=== PATIENT | male | born 1970 | race Caucasian/White ===

== ENCOUNTER → 2020-09-03 | Outpatient (CLI) | payer OTHER ==
[2020-06-24 11:00] VITALS: BP 132/60
--- NOTE | 2020-09-03 17:24 | RAD ---
EXAM: Left lower extremity venous Doppler. HISTORY: Left leg edema. COMPARISON: Chest x-ray of 06/16/2020 FINDINGS: Grayscale and Doppler analysis of the left lower extremity deep venous systems was performe d with graded compression and augmentation. The common femoral, greater saphenous, superficial femora l, popliteal and calf veins were assessed. There is partially occlusive thrombus in the left femoral vein and occlusive thrombus in the poplitea l and posterior tibial veins. IMPRESSION: 1. Occlusive thrombus in the deep veins of the left lower extremity from the popliteal vein distally, and partially occlusive thrombus in the distal femoral vein. Attempt at telephone contact with the patient's referring physician was unsuccessful given after-hour s timing of the study performance. I therefore discussed the findings with patient in person at 5:10p m on 09/03/20 and he stated he has already a one week's supply of anticoagulant medication provided by his referring physician with instructions on how to commence anticoagulation should this study be th e positive. I encouraged him to follow his referring physician instructions, seek further advice from his referring physician or primary care physician, and to limit his physical activity pending furthe r instructions from his referring physician. Electronically signed by: Jennie Gallegos MD (09/03/2020 5:21 PM) [id number]
--- NOTE | 2020-09-03 17:33 | RAD ---
EXAMINATION: XR CHEST 2V CLINICAL HISTORY: Follow-up COVID-19 EXAM DATE/TIME: 09/03/2020 5:17 PM COMPARISON: 06/16/2020 FINDINGS: Lines, Tubes, and Devices: None. Cardiomediastinal Silhouette: Normal heart size. Lungs and Pleura: Pulmonary hypoexpansion with otherwise improved aeration of the bilateral lungs. Mi ld residual patchy left basilar opacity and curvilinear bibasilar opacities, possibly scarring and/or subsegmental atelectasis. Blunting of the left costophrenic angle, possibly related to pleural thick ening/scarring versus small pleural effusion. No pneumothorax. Bones and Soft Tissues: Degenerative changes of the thoracic spine. IMPRESSION: Improved aeration of the bilateral lungs with mild residual bibasilar airspace disease and/or scarrin g and/or scarring. Electronically signed by: Sal Dior DO (09/03/2020 5:30 PM) [id number]
== END ==
LOC: US 16:06
PROVIDERS: ATTEND Family Medicine
DX: I82.432 Acute embolism and thrombosis of left popliteal vein (principal); I82.412 Acute embolism and thrombosis of left femoral vein; Z86.16 Personal history of COVID-19
CPT/HCPCS: 71046; 93971